=== PATIENT | female | born 1985 | race Caucasian/White ===

== ENCOUNTER 2019-11-16 09:07 | Inpatient (IN) ==
[2019-11-16] MEDS ORDERED: ceFAZolin 2,000 MG in PREMIX 1 EACH IV ONE (11:24)
[2019-11-16] MEDS ORDERED: CITRIC ACID/SODIUM CITRATE 30 ML UDCUP PO ONE (11:25)
[2019-11-16] MEDS ORDERED: ONDANSETRON 4 MG/2 ML VIAL IV ONE (11:25)
[2019-11-16] MEDS ORDERED: FAMOTIDINE 20 MG/2 ML VIAL IV ONE (11:25)
[2019-11-16] MEDS ORDERED: LACTATED RINGERS 1,000 ML IV ONE (11:25)
[2019-11-16] MEDS ORDERED: hydrOXYzine HCL 25 MG/1 ML VIAL IM PRN (11:25)
[2019-11-16] MEDS ORDERED: diphenhydrAMINE 50 MG/1 ML VIAL IV PRN ×2 (11:25)
[2019-11-16] MEDS ORDERED: PROMETHAZINE 25 MG/1 ML VIAL IM ONE (11:25)
[2019-11-16] MEDS ORDERED: OXYTOCIN/LR 20 UNIT/1,000 ML BAG IV ONE ×2 (11:28→13:10)
[2019-11-16] MEDS ORDERED: LACTATED RINGERS 1,000 ML IV SCH ×2 (11:30→13:30)
[2019-11-16 11:42] LABS: Basophils % 0.2 % (0.0-0.8); Eosinophils % 0.1 % (0.00-10.9); Hematocrit 42.1 VOL% (35.7-47.0); Hemoglobin 14.5 GM/DL (12.0-16.0); Immature Granulocytes Absolute 0.17 #; Lymphocytes # 2.1 10*3/uL (1.4-4.0); Lymphocytes % 12.3 % (21.3-54.2); Mean Corpuscular HGB Conc 34.4 GM/DL (32-36); Mean Corpuscular Volume 89.6 FL (87-102); Mean Platelet Volume 10.1 FL (9.6-12.0); Monocytes % 3.1 % (1.7-12.7); Neutrophils % 83.3 % (38.7-73.9); Platelet Count 232 T/CUMM (130-400); White Blood Count 17.2 T/CUMM (4-12)
[2019-11-16] MEDS ORDERED: BUPIVACAINE SPINAL 0.75% 2 ML AMP SPINAL ONE (12:17)
[2019-11-16] MEDS ORDERED: MORPHINE 10 MG/10 ML VIAL ONE (12:17)
[2019-11-16] MEDS ORDERED: PHENYLEPHRINE 1 MG/10 ML SYRINGE IV ONE ×2 (12:17→13:48)
[2019-11-16] MEDS ORDERED: BUPIVACAINE 0.25% 50 ML VIAL ONE (12:18)
[2019-11-16] MEDS ORDERED: ACETAMINOPHEN 325 MG TABLET PO PRN (13:10)
[2019-11-16] MEDS ORDERED: RHO(D) IMMUNE GLOBULIN 300 MCG SYRINGE IM ONE (13:10)
[2019-11-16] MEDS ORDERED: ONDANSETRON 4 MG/2 ML VIAL IV PRN (13:10)
[2019-11-16] MEDS ORDERED: DEXAMETHASONE 4 MG/1 ML VIAL ONE (13:48)
[2019-11-16 13:53] LABS: Albumin 2.6 G/DL (3.4-5.0); Bilirubin,Total 0.5 MG/DL (0.2-1.0); Calcium 9.5 MG/DL (8.5-10.1); Osmolality,Calculated 264.4 MOS/KG (273-304); Total Protein 7.1 G/DL (6.4-8.3)
[2019-11-16 13:58] LABS: Apearance,Urine CLEAR (Clear); Bilirubin,Urine Negative (Negative); Blood, Urine Negative (Negative); Glucose,Urine (UA) Negative (Negative); Ketones,Urine Negative (Negative); Mucus,Urine Occasional /LPF (Occasional); Nitrite,Urine Negative (Negative); Protein,Urine Negative; RBC,Urine 1 /HPF (0-4); Squamous Epithelial Cell,Urine Occasional /HPF (0-10); Urine Color Yellow (Yellow); Urine Specific Gravity 1.019 (1.001-1.035); Urine Urobilinogen < 2.0 EU/DL (0.2-1.0); WBC,Urine <1 /HPF (0-6)
[2019-11-16] MEDS: ceFAZolin 1,000 MG in SYRINGE 1 EACH IV SCH (20:39)
[2019-11-16] MEDS: DOCUSATE SODIUM 100 MG CAPSULE PO SCH (21:16)
[2019-11-16] MEDS: IBUPROFEN 800 MG TABLET PO PRN (21:17)
[2019-11-17] MEDS: ceFAZolin 1,000 MG in SYRINGE 1 EACH IV SCH (04:34)
[2019-11-17 05:36] LABS: Basophils % 0.3 % (0.0-0.8); Eosinophils % 0.2 % (0.00-10.9); Hematocrit 35.3 VOL% (35.7-47.0); Hemoglobin 11.9 GM/DL (12.0-16.0); Immature Granulocytes % 0.6 %; Lymphocytes # 2.7 10*3/uL (1.4-4.0); Lymphocytes % 16.9 % (21.3-54.2); Mean Corpuscular HGB Conc 33.7 GM/DL (32-36); Mean Corpuscular Volume 91.2 FL (87-102); Mean Platelet Volume 10.4 FL (9.6-12.0); Monocytes % 3.5 % (1.7-12.7); Neutrophils % 78.5 % (38.7-73.9); Platelet Count 191 T/CUMM (130-400); Red Blood Count 3.87 MC/CUMM (3.8-5.5); Red Cell Distribution Width 13.7 % (9.3-17.3); White Blood Count 15.8 T/CUMM (4-12)
[2019-11-17] MEDS: MAGNESIUM HYDROXIDE SUSP 30 ML UDCUP PO PRN ×2 (09:30→21:18)
[2019-11-17] MEDS: DOCUSATE SODIUM 100 MG CAPSULE PO SCH ×2 (09:30→21:18)
[2019-11-17] MEDS: SIMETHICONE CHEW 80 MG TABLET PO PRN ×2 (09:30→21:18)
[2019-11-17] MEDS: IBUPROFEN 800 MG TABLET PO PRN ×2 (09:30→17:14)
[2019-11-17] MEDS: MULTIVITAMIN (PRENATAL) TABLET PO SCH (10:07)
[2019-11-17] MEDS ORDERED: RHO(D) IMMUNE GLOBULIN 300 MCG SYRINGE IM ONE (19:00)
[2019-11-18] MEDS: IBUPROFEN 800 MG TABLET PO PRN (04:20)
[2019-11-18] MEDS: MULTIVITAMIN (PRENATAL) TABLET PO SCH (09:54)
[2019-11-18] MEDS: DOCUSATE SODIUM 100 MG CAPSULE PO SCH (09:54)
[2019-11-18 10:50] VITALS: BP 125/77
[2019-11-18] MEDS ORDERED: DIPH/TET/ACEL PERT BOOSTER VACCINE 0.5 ML VIAL IM ONE (11:36)
== END 2019-11-18 12:05 | disposition home or self-care (01) | DRG 540 ==
LOC: N.LDOUT 09:07 → N.LD 09:09 → N.OB 16:55
PROVIDERS: ADMIT Obstetrics & Gynecology; ATTEND Obstetrics & Gynecology
PROC: LDCSECT (ICD-10-PCS; 2019-11-16 11:40)